=== PATIENT | male | born 1960 | race Caucasian/White ===

== ENCOUNTER 2018-02-14 13:29 | Emergency (ER) | payer SELFPAY ==
[2018-02-14 13:42] VITALS: BP 149/95
[2018-02-14] MEDS ORDERED: LIDOCAINE 2% VISCOUS SOLN 20 ML UDCUP PO ONE (14:22)
[2018-02-14] MEDS ORDERED: MAG HYDROX/AL HYDROX/SIMETH SUSP 30 ML UDCUP PO ONE (14:22)
[2018-02-14] MEDS ORDERED: METOCLOPRAMIDE HCL ORAL SOLN 10 MG/10 ML UDCUP PO ONE (14:22)
--- NOTE | 2018-02-14 14:24 | ER Document Report ---
ED Medical Screen (RME) - General Chief Complaint: Abdominal Pain Stated Complaint: ABDOMINAL PAIN Time Seen by Provider: 02/14/18 14:07 Mode of Arrival: Ambulatory Information source: Patient, Relative TRAVEL OUTSIDE OF THE [place] IN LAST 30 DAYS: No - HPI Patient complains to provider of: Abdominal pain Onset: Last week - This is a 57-year-old male alcoholic as well as daily cigarette smoker who presents for evaluation of recurrent episodes of bizarre feeling in his stomach upon drinking water as well as insomnia which is developed after finding out that his son last week. He notes that he has had difficulty sleeping, he said difficulty and drinking and eating as he usually does because he has a weird sensation in his stomach when he drinks water but it is very cold and shoots through him. He has had episodes of gastritis in the past and reflux which he says this is similar to. Nothing seemed to make it much better, nothing seems to make it worse except for drinking cold water. - Related Data Allergies/Adverse Reactions: No Known Allergies Allergy (Unverified 02/14/18 13:30) Past Medical History - General Information source: Patient, Relative - Social History Cigarette use (# per day): Yes Frequency of alcohol use: Heavy Drug Abuse: None Renal/ Medical History: Denies: Hx Peritoneal Dialysis Past Surgical History: Reports: Hx Inguinal Hernia Review of Systems - Review of Systems -: Yes All other systems reviewed and negative Physical Exam - Vital signs Vitals: Temp Pulse Resp BP Pulse Ox 98.1 F 105 H 16 149/95 H 98 02/14/18 13:41 02/14/18 13:41 02/14/18 13:41 02/14/18 13:41 02/14/18 13:41 - General General appearance: Appears well In distress: Mild - HEENT Head: Normocephalic Eyes: Normal Conjunctiva: Normal Ears: Normal Pharynx: Normal Neck: Normal - Respiratory Respiratory status: No respiratory distress Chest status: Nontender Breath sounds: Normal Chest palpation: Normal - Cardiovascular Rhythm: Regular Heart sounds: Normal auscultation Murmur: No - Abdominal Inspection: Normal Bowel sounds: Normal Tenderness: Tender - Tenderness in the left upper quadrant, no appreciable rebound no appreciable guarding - Back Back: Normal - Extremities General upper extremity: Normal inspection General lower extremity: Normal inspection - Neurological Neuro grossly intact: Yes Cognition: Normal Orientation: AAOx4 - Psychological Associated symptoms: Normal affect Course - Re-evaluation Re-evalutation: This 57-year-old male presents for evaluation of abdominal pain which developed in the setting of him having not been able to eat or drink over the last 6-7 days, he has been drinking small volumes of water according to his sister who presents with him ever since finding out that his son . She notes that this is unlike him he still been functioning working daily he is a daily alcohol drinker as well as daily smoker. On examination the patient's abdominal exam is benign, there is no appreciable rebound no guarding is slightly tender in the left upper quadrant over the stomach. He is a negative Verma sign, no tenderness in the right lower quadrant. Given the patient's well appearance and reassuring abdominal examination will plan to administer a GI cocktail as I think that he likely has an underlying gastritis as a result of cigarette use insomnia and tobacco use as well as alcohol use. He is in agreement with this plan at this time, CBC and CMP show hemoconcentration. Patient likely is fluid depleted though he is tolerating p.o. very well at this time will encourage him to continue to drink water. 02/14/18 16:21 On reassessment this 57-year-old man is tolerating p.o., he is feeling better, is going to try to tolerate some solid foods his abdominal examination remains benign. Since his exam remains benign and he is well-appearing in tolerate p.o. believe is likely safe for discharge at this time will plan for this patient undergo discharge with return precautions encouraged follow-up with his primary physician did business and financial counsel about the importance of smoking cessation as well as alcohol cessation if he is to improve his underlying gastritis. 02/14/18 19:56 - Vital Signs Vital signs: Temp Pulse Resp BP Pulse Ox 98.1 F 105 H 16 149/95 H 98 02/14/18 13:41 02/14/18 13:41 02/14/18 13:41 02/14/18 13:41 02/14/18 13:41 - Laboratory Result Diagrams: 02/14/18 14:50 02/14/18 14:50 Laboratory results interpreted by me: 02/14/18 02/14/18 14:50 14:50 WBC 16.5 H Hgb 19.2 H Hct 55.9 H MCV 104 H MCH 35.6 H RDW 15.3 H Seg Neutrophils % 86.5 H Lymphocytes % 5.7 L Absolute Neutrophils 14.3 H Sodium 136.3 L Chloride 97 L Carbon Dioxide 21 L Direct Bilirubin 0.5 H Total Protein 8.7 H Doctor's Discharge - Discharge Clinical Impression: Nausea, Grief reaction, Alcohol use, Tobacco abuse Gastritis Qualifiers: Gastritis type: other gastritis Chronicity: chronic Gastritis bleeding: without bleeding Qualified Code(s): K29.50 - Unspecified chronic gastritis without bleeding Condition: Good Disposition: HOME, SELF-CARE Instructions: Abdominal Pain ([facility]), Gastritis ([facility]) Prescriptions: Diphenhydramine HCl 25 mg PO QHS PRN #25 capsule PRN Reason: Sleep Or Insomnia Omeprazole Magnesium [Prilosec Otc] 40 mg PO DAILY #120 tablet. Sucralfate [Carafate 1 gm Tablet] 1 gm PO QID #140 tablet Forms: Smoking Cessation Education, Elevated Blood Pressure
[2018-02-14 15:04] LABS: ABSOLUTE BASOPHILS # (AUTO) 0.1 10^3/uL (0.0-0.2); ABSOLUTE EOSINOPHILS # (AUTO) 0.1 10^3/uL (0.0-0.6); ABSOLUTE LYMPHOCYTES (AUTO) 0.9 10^3/uL (0.5-4.7); ABSOLUTE MONOCYTES (AUTO) 1.2 10^3/uL (0.1-1.4); ABSOLUTE NEUT (AUTO) 14.3 10^3/uL (1.7-8.2); BASOPHILS % (AUTO) 0.3 % (0-2); EOSINOPHILS % (AUTO) 0.4 % (0-6); HEMOGLOBIN 19.2 g/dL (13.5-17.0); LYMPHOCYTES % (AUTO) 5.7 % (13-45); MEAN CORPUSCULAR HEMOGLOBIN 35.6 pg (27.0-33.4); MEAN CORPUSCULAR HGB CONC 34.4 g/dL (32.0-36.0); MEAN CORPUSCULAR VOLUME 104 fl (80-97); MONOCYTES % (AUTO) 7.1 % (3-13); PLATELET COUNT 317 10^3/uL (150-450); RED CELL DISTRIBUTION WIDTH 15.3 % (11.5-14.0); SEGMENTED NEUTROPHILS % (AUTO) 86.5 % (42-78); TOTAL CELLS COUNTED % (AUTO) 100 %; WHITE BLOOD COUNT 16.5 10^3/uL (4.0-10.5)
[2018-02-14 15:05] LABS: HEMATOCRIT 55.9 % (37.9-51.0)
[2018-02-14 15:34] LABS: ALANINE AMINOTRANSFERASE 31 U/L (21-72); ALBUMIN 4.4 g/dL (3.5-5.0); ALKALINE PHOSPHATASE 123 U/L (38-126); ANION GAP 18 (5-19); ASPARTATE AMINO TRANSFERASE 39 U/L (17-59); BILIRUBIN,DIRECT 0.5 mg/dL (0.0-0.4); BILIRUBIN,TOTAL 0.8 mg/dL (0.2-1.3); BLOOD UREA NITROGEN 10 mg/dL (7-20); CARBON DIOXIDE 21 mmol/L (22-30); CHLORIDE 97 mmol/L (98-107); GLUCOSE 97 mg/dL (75-110); POTASSIUM 4.3 mmol/L (3.6-5.0); SODIUM 136.3 mmol/L (137-145); TOTAL PROTEIN 8.7 g/dL (6.3-8.2)
== END 2018-02-14 18:30 | disposition home or self-care (01) ==
LOC: ER 13:29
DX: K29.50 Unspecified chronic gastritis without bleeding (principal); G47.01 Insomnia due to medical condition; F43.29 Adjustment disorder with other symptoms; G47.00 Insomnia, unspecified; R11.0 Nausea; R10.9 Unspecified abdominal pain; R10.812 Left upper quadrant abdominal tenderness; F10.20 Alcohol dependence, uncomplicated; F17.210 Nicotine dependence, cigarettes, uncomplicated
CPT/HCPCS: 99284; 36415; 83690; 85025; 80053; J3490

== ENCOUNTER 2018-07-07 10:04 | Inpatient (IN) | payer SELFPAY ==
--- NOTE | 2018-07-07 10:31 | ER Document Report ---
ED General - General Stated Complaint: WEAKNESS Time Seen by Provider: 07/07/18 10:08 Notes: Patient was brought in by EMS with a complaint of chest "pounding" and "thro bbing" which he says comes and goes for the past week. Does not mention the words chest pain. In addition, patient says that he has developed a "major headache" since yesterday. He says he has difficulty standing and with his balance and feels like he is going to fall, although he has not done so. Says he had an episode similar to this 6 or 7 years ago and was worked up and does not recall what the doctors told and was wrong. Never been told he had a heart attack. Told he had a heart murmur. Patient is a heavy alcohol drinker, but says he is not had any alcohol since about 2 PM yesterday. Also says he has not eaten anything for 2 days. Says he does not feel right for several days. Patient is homeless. Says he slept outside last night for the first time. Temperatures went down into the 30s. Says he does not feel like he can get warm. TRAVEL OUTSIDE OF THE [place] IN LAST 30 DAYS: No - Related Data Allergies/Adverse Reactions: No Known Allergies Allergy (Unverified 02/14/18 13:30) Past Medical History - Social History Smoking Status: Current Every Day Smoker Frequency of alcohol use: Heavy Family History: None, Reviewed & Not Pertinent - Past Medical History Cardiac Medical History: Denies: Hx Coronary Artery Disease, Hx Heart Attack, Hx Hypertension Pulmonary Medical History: Denies: Hx Asthma, Hx COPD Neurological Medical History: Denies: Hx Cerebrovascular Accident Endocrine Medical History: Denies: Hx Diabetes Mellitus Type 1, Hx Diabetes Mellitus Type 2 Past Surgical History: Reports: Hx Inguinal Hernia Review of Systems - Review of Systems Notes: REVIEW OF SYSTEMS: CONSTITUTIONAL : Denies fever. EENT: Denies eye, ear, nose or mouth or throat pain or other symptoms. CARDIOVASCULAR: Denies chest pain. See HPI. RESPIRATORY: Says he is having difficulty breathing, but denies cough, chest congestion. GASTROINTESTINAL: Denies abdominal pain or nausea, vomiting, or diarrhea. GENITOURINARY: Denies difficulty or painful urinating, urinary frequency, blood in urine. MUSCULOSKELETAL: Denies back or neck pain. Denies joint pain or swelling. SKIN: Denies rash or skin lesions. NEUROLOGICAL: Denies LOC or altered mental status. See HPI regarding headache. Denies sensory loss, but says he has problems standing and feels like he is going to fall. No specific neurologic deficits. ALL OTHER SYSTEMS REVIEWED AND NEGATIVE. Physical Exam - Vital signs Vitals: Temp 98.0 F 07/07/18 10:16 Interpretation: Normal - Notes Notes: PHYSICAL EXAMINATION: GENERAL: Well-appearing, in no acute distress. Anxious. Shivering and shaking. Temp 97.9. HEAD: Atraumatic, normocephalic. EYES: Pupils equal round and reactive to light, extraocular movements intact. ENT: oropharynx clear without exudates. Moist mucous membranes. NECK: Normal range of motion, supple. LUNGS: Breath sounds clear and equal bilaterally. HEART: Regular rate and rhythm without murmurs. ABDOMEN: Soft, nontender. No guarding or rebound. No masses. BACK: No tenderness throughout entire back. EXTREMITIES: Normal range of motion without pain. Negative Homans bilaterally. NEUROLOGICAL: Normal speech, normal gait. Normal sensory, motor, and reflex exams. Awake, alert, and oriented x3. Cranial nerves normal. PSYCH: Normal mood, normal affect. SKIN: Warm, dry, no rashes. Course - Re-evaluation Re-evalutation: 07/07/18 13:53 Basically, almost all of the patient's lab results of significance are normal. CT scan shows aging brain but no acute processes and no strokes. Chest x-ray shows no abnormalities. Patient says he cannot walk. Cannot stand. We were able to stand him at the bedside, but is unsteady on his feet. He can walk, but does not look as if it is reliable. Heart rate went up to 106 when we did this maneuver at bedside. Am going to get a CTA of his chest and repeat his troponin. 07/07/18 16:28 Rechecked patient's ability to stand and he is still very uncertain on his feet. He can stand and walk but he seems to have problems with his balance. Additionally, when he gets up out of the bed, his heart rate goes up as it has done earlier into the 1 teens to 120. Drug screen was negative and alcohol was negative. I do not know if this patient is experiencing alcohol withdrawal since his last alcohol was yesterday afternoon. Or, whether he may be having some neurologic event that is not picked up by his CT scan. I have added on a thyroid study to the labs have already obtained. I have spoken to the hospitalist about observing the patient overnight and further studies to determine that there is a definite pathologic cause or not for his symptoms. - Vital Signs Vital signs: Temp Pulse Resp BP Pulse Ox 98.0 F 85 16 127/88 H 97 07/07/18 10:16 07/07/18 10:20 07/07/18 16:04 07/07/18 16:04 07/07/18 16:04 - Laboratory Result Diagrams: 07/07/18 10:10 07/07/18 10:10 Laboratory results interpreted by nc: 07/07/18 07/07/18 07/07/18 10:10 10:10 12:45 RBC 4.19 L MCV 99 H MCH 34.5 H Seg Neutrophils % 84.7 H Lymphocytes % 7.4 L Sodium 133.7 L Chloride 97 L Carbon Dioxide 20 L Glucose 220 H Calcium 10.4 H AST 122 H ALT 82 H Total Protein 8.5 H Albumin 5.1 H Urine Protein 100 H Urine Glucose (UA) >=500 H Urine Urobilinogen 4.0 H - Diagnostic Test Radiology reviewed: Image reviewed, Reports reviewed - CT head negative. CTA of the chest negative. - EKG Interpretation by Tn EKG shows normal: Sinus rhythm Rate: Normal Rhythm: NSR Additional EKG results interpreted by nc: 07/07/18 11:17 EKG is normal. Discharge - Discharge Clinical Impression: Chest pain, Weakness, Headache, Possible alcohol withdrawal Condition: Stable Disposition: ADMITTED OBSERVATION Admitting Provider: Hospitalist Unit Admitted: Telemetry
[2018-07-07 10:41] LABS: ABSOLUTE BASOPHILS # (AUTO) 0.1 10^3/uL (0.0-0.2); ABSOLUTE LYMPHOCYTES (AUTO) 0.6 10^3/uL (0.5-4.7); ABSOLUTE MONOCYTES (AUTO) 0.5 10^3/uL (0.1-1.4); ABSOLUTE NEUT (AUTO) 6.5 10^3/uL (1.7-8.2); BASOPHILS % (AUTO) 0.8 % (0-2); EOSINOPHILS % (AUTO) 0.1 % (0-6); HEMATOCRIT 41.4 % (37.9-51.0); HEMOGLOBIN 14.5 g/dL (13.5-17.0); LYMPHOCYTES % (AUTO) 7.4 % (13-45); MEAN CORPUSCULAR HEMOGLOBIN 34.5 pg (27.0-33.4); MEAN CORPUSCULAR HGB CONC 34.9 g/dL (32.0-36.0); MEAN CORPUSCULAR VOLUME 99 fl (80-97); PLATELET COUNT 164 10^3/uL (150-450); RED BLOOD COUNT 4.19 10^6/uL (4.35-5.55); RED CELL DISTRIBUTION WIDTH 12.6 % (11.5-14.0); SEGMENTED NEUTROPHILS % (AUTO) 84.7 % (42-78); TOTAL CELLS COUNTED % (AUTO) 100 %; WHITE BLOOD COUNT 7.6 10^3/uL (4.0-10.5)
[2018-07-07 10:55] LABS: ALANINE AMINOTRANSFERASE 82 U/L (21-72); ALBUMIN 5.1 g/dL (3.5-5.0); ALKALINE PHOSPHATASE 126 U/L (38-126); ANION GAP 17 (5-19); ASPARTATE AMINO TRANSFERASE 122 U/L (17-59); BILIRUBIN,DIRECT 0.3 mg/dL (0.0-0.4); BILIRUBIN,TOTAL 1.2 mg/dL (0.2-1.3); BLOOD UREA NITROGEN 8 mg/dL (7-20); CALCIUM 10.4 mg/dL (8.4-10.2); CARBON DIOXIDE 20 mmol/L (22-30); CHLORIDE 97 mmol/L (98-107); CREATINE KINASE 72 U/L (55-170); GLUCOSE 220 mg/dL (75-110); POTASSIUM 4.2 mmol/L (3.6-5.0); SODIUM 133.7 mmol/L (137-145); TOTAL PROTEIN 8.5 g/dL (6.3-8.2)
[2018-07-07 11:00] LABS: ALCOHOL < 10 mg/dL (NONE DETECTED)
[2018-07-07 11:05] LABS: CREATINE KINASE MB 0.75 ng/mL (<4.55)
[2018-07-07 11:06] LABS: TROPONIN I < 0.012 ng/mL
--- NOTE | 2018-07-07 11:27 | RADIOLOGY REPORT (SQ) ---
EXAM DESCRIPTION: CT HEAD WITHOUT COMPLETED DATE/TIME: 07/07/2018 11:16 am REASON FOR STUDY: Headache and difficulty standing and walking COMPARISON: None. TECHNIQUE: Axial images acquired through the brain without intravenous contrast. Images reviewed wi th bone, brain and subdural windows. Additional sagittal and coronal reconstructions were generated. Images stored on PACS. All CT scanners at this facility use dose modulation, iterative reconstruction, and/or weight based d osing when appropriate to reduce radiation dose to as low as reasonably achievable (ALARA). [facility]: Dose Right [facility]: CareDose [facility]: Dose Right [facility]: Teradose 4D [facility]: Smart [employer] Limited RADIATION DOSE: CT Rad equipment meets quality standard of care and radiation dose reduction techniq ues were employed. CTDIvol: 48.8 mGy. DLP: 1078 mGy-cm.mGy. LIMITATIONS: None. FINDINGS: VENTRICLES: Prominent. CEREBRUM: No masses. No hemorrhage. No midline shift. Old left frontal infarct. Areas of low dens ity in the white matter most likely due to chronic micro-vascular ischemic change. No evidence for a cute infarction. CEREBELLUM: No masses. No hemorrhage. No alteration of density. No evidence for acute infarction. EXTRAAXIAL SPACES: Age-related involutional change. No fluid collections. No masses. ORBITS AND GLOBE: No intra- or extraconal masses. Normal contour of globe without masses. CALVARIUM: No fracture. PARANASAL SINUSES: No fluid or mucosal thickening. SOFT TISSUES: No mass or hematoma. OTHER: No other significant finding. IMPRESSION: Chronic ischemic changes. EVIDENCE OF ACUTE STROKE: NO. TECHNICAL DOCUMENTATION: JOB ID: [id number] Quality ID # [id number]: Final reports with documentation of one or more dose reduction techniques (e.g., Au tomated exposure control, adjustment of the mA and/or kV according to patient size, use of iterative reconstruction technique) 2010 [employer]- All Rights Reserved Reading location - IP/workstation name: [email or web address]
--- NOTE | 2018-07-07 13:05 | RADIOLOGY REPORT (SQ) ---
EXAM DESCRIPTION: CHEST 2 VIEWS COMPLETED DATE/TIME: 07/07/2018 12:36 pm REASON FOR STUDY: Difficulty breathing, chest throbbing COMPARISON: None. EXAM PARAMETERS: NUMBER OF VIEWS: two views TECHNIQUE: Digital Frontal and Lateral radiographic views of the chest acquired. RADIATION DOSE: NA LIMITATIONS: none FINDINGS: LUNGS AND PLEURA: No opacities, masses or pneumothorax. No pleural effusion. MEDIASTINUM AND HILAR STRUCTURES: No masses or contour abnormalities. HEART AND VASCULAR STRUCTURES: Heart normal size. No evidence for failure. BONES: No acute findings. HARDWARE: None in the chest. OTHER: No other significant finding. IMPRESSION: NO ACUTE RADIOGRAPHIC FINDING IN THE CHEST. TECHNICAL DOCUMENTATION: JOB ID: [id number] [employer]- All Rights Reserved Reading location - IP/workstation name: [email or web address]
[2018-07-07 13:11] LABS: APPEARANCE,URINE SLIGHTLY-CLOUDY; BILIRUBIN,URINE NEGATIVE (NEGATIVE); COLOR,URINE AMBER; GLUCOSE, URINE >=500 mg/dL (NEGATIVE); KETONES,URINE NEGATIVE (NEGATIVE); LEUKOCYTE ESTERASE,URINE NEGATIVE (NEGATIVE); NITRITE,URINE NEGATIVE (NEGATIVE); PROTEIN,URINE 100 mg/dL (NEGATIVE); URINE SPECIFIC GRAVITY 1.014
[2018-07-07 13:24] LABS: URINE AMPHETAMINES SCREEN NEGATIVE; URINE BARBITURATES SCREEN NEGATIVE; URINE BENZODIAZEPINES SCREEN NEGATIVE; URINE COCAINE SCREEN NEGATIVE; URINE MARIJUANA (THC) SCREEN UNCONFIRMED POSITIVE; URINE METHADONE SCREEN NEGATIVE; URINE PHENCYCLIDINE SCREEN NEGATIVE
--- NOTE | 2018-07-07 14:51 | RADIOLOGY REPORT (SQ) ---
EXAM DESCRIPTION: CTA CHEST COMPLETED DATE/TIME: 07/07/2018 2:33 pm REASON FOR STUDY: Short of breath and tachycardia COMPARISON: None. TECHNIQUE: CT scan of the chest performed using helical scanning technique with dynamic intravenous contrast injection. Images reviewed with lung, soft tissue and bone windows. Reconstructed coronal and sagittal MPR images reviewed. Additional 3 dimensional post-processing performed to develop Maximal Intensity Projection images (AR P). All images stored on PACS. All CT scanners at this facility use dose modulation, iterative reconstruction, and/or weight based d osing when appropriate to reduce radiation dose to as low as reasonably achievable (ALARA). [facility]: Dose Right [facility]: CareDose [facility]: Dose Right [facility]: Teradose 4D [facility]: [employer] CONTRAST TYPE AND DOSE: contrast/concentration: Isovue 350.00 mg/ml; Total Contrast Delivered: 62.0 ml; Total Saline Delivered: 101.8 ml Contrast bolus optimized for the pulmonary arteries. Not diagnostic for the aorta. RENAL FUNCTION: BUN 8 creatinine 0.74 RADIATION DOSE: CT Rad equipment meets quality standard of care and radiation dose reduction techniq ues were employed. CTDIvol: 9.4 - 9.9 mGy. DLP: 402 mGy-cm. . LIMITATIONS: None. FINDINGS: LUNGS AND PLEURA: No masses, infiltrates, or pneumothorax. No pleural effusions or pleura l calcifications. AORTA AND GREAT VESSELS: No aneurysm. Contrast bolus not optimized for the aorta. HEART: No pericardial effusion. No significant coronary artery calcifications. PULMONARY ARTERIES: No emboli visualized in the main pulmonary arteries or the segmental branches. HILAR AND MEDIASTINAL STRUCTURES: No identified masses or abnormal nodes. HARDWARE: None in the chest. UPPER ABDOMEN: No significant findings. Limited exam. THYROID AND OTHER SOFT TISSUES: No masses. No adenopathy. BONES: No acute or significant finding. 3D MIPS: Confirm above findings. OTHER: No other significant finding. IMPRESSION: NORMAL CTA OF THE CHEST. NO PULMONARY EMBOLI. COMMENT: Quality ID # [id number]: Final reports with documentation of one or more dose reduction techniques (e.g., Automated exposure control, adjustment of the mA and/or kV according to patient size, use of iterative reconstruction technique) TECHNICAL DOCUMENTATION: JOB ID: [id number] [employer]- All Rights Reserved Reading location - IP/workstation name: [email or web address]
[2018-07-07] MEDS ORDERED: NORMAL SALINE 1000 ML 1,000 ML IV ONE (16:21)
[2018-07-07 17:15] LABS: FREE T4 (FREE THYROXINE) 0.94 ng/dL (0.78-2.19)
[2018-07-07] MEDS ORDERED: ONDANSETRON 4 MG TAB.RAPDIS PO PRN (17:16)
[2018-07-07] MEDS ORDERED: IPRATROPIUM/ALBUTEROL 0.5-2.5 MG/3 ML AMPUL NEB PRN (17:16)
[2018-07-07 17:28] LABS: THYROID STIMULATING HORMONE 3.4 uIU/mL (0.47-4.68)
--- NOTE | 2018-07-07 17:52 | PDOC H&P ---
History of Present Illness Admission Date/PCP: 07/07/18 16:43 Patient complains of: Dizziness, chest pounding, unsteady gait and inability to ambulate since today. History of Present Illness: YURY SCHULTE is a 57 year old male who presents to the emergency room with the above complaints. Patient said the symptoms actually started today. He also complained of an associated headache but no blurred vision. He said he went to the [facility] today and was there he started suffering from the symptoms. There is no nausea vomiting or diarrhea or abdominal pain. She then said he had been having some palpitations off and on but he got concerned as it became worse today. Patient also has tremors and shakes. He says he drinks about 2 cans of beer daily sometimes more on the weekend. His last drink was about 4 days ago as he ran out of money to buy alcohol. Patient did try to minimize his drinking habits when I questioned him and he is pretty sure that his symptoms are not alcohol related. He said he stopped drinking before without any issues. Kenyatta ent is also noted to have a positive toxicology screen for marijuana. He denies any other significant medical history Past Medical History Cardiac Medical History: Denies: Coronary Artery Disease, Myocardial Infarction, Hypertension Pulmonary Medical History: Denies: Asthma, Chronic Obstructive Pulmonary Disease (COPD) Endocrine Medical History: Denies: Diabetes Mellitus Type 1, Diabetes Mellitus Type 2 Past Surgical History Past Surgical History: Reports: None Social History Information Source: Patient Smoking Status: Current Every Day Smoker Frequency of Alcohol Use: Heavy - See H and P Last Alcohol Use: 07/02/18 Hx Recreational Drug Use: Yes Drugs: Marijuana Hx Prescription Drug Abuse: No - Advance Directive Resuscitation Status: Full Code Family History Family History: None, Reviewed & Not Pertinent Parental Family History Reviewed: Yes - Both parents from cancer, mother uterine, father liver Children Family History Reviewed: Unknown Sibling(s) Family History Reviewed.: Yes - cancer Medication/Allergy Allergies/Adverse Reactions: No Known Allergies Allergy (Unverified 02/14/18 13:30) Review of Systems All systems: reviewed and no additional remarkable complaints except as stated Neurological: PRESENT: as per HPI, abnormal movements, dizziness, restless legs, tremor(s), weakness Physical Exam Vital Signs: Temp Pulse Resp BP Pulse Ox 98.0 F 85 22 H 127/88 H 95 07/07/18 10:16 07/07/18 10:20 07/07/18 17:00 07/07/18 16:04 07/07/18 17:00 Intake & Output 07/06/18 07/07/18 07/08/18 06:59 06:59 06:59 Weight 62.7 kg General appearance: PRESENT: no acute distress, cooperative, other - tremor Head exam: PRESENT: atraumatic Ear exam: PRESENT: normal external ear exam Neck exam: PRESENT: full ROM. ABSENT: carotid bruit, JVD, meningismus, thyromegaly Respiratory exam: PRESENT: unlabored. ABSENT: accessory muscle use, rales, retraction Cardiovascular exam: PRESENT: +S1, +S2. ABSENT: systolic murmur Pulses: PRESENT: normal dorsalis pedis pul GI/Abdominal exam: PRESENT: normal bowel sounds, soft. ABSENT: distended, guarding, mass, organolmegaly, rebound, tenderness Rectal exam: PRESENT: deferred Extremities exam: PRESENT: full ROM. ABSENT: calf tenderness, clubbing, pedal edema Musculoskeletal exam: PRESENT: full ROM Neurological exam: PRESENT: alert, awake, oriented to person, oriented to place, reflexes normal - hyper reflexia, other Psychiatric exam: PRESENT: agitated, anxious, other Focused psych exam: PRESENT: restlessness Results Laboratory Results: 07/07/18 10:10 07/07/18 10:10 07/07/18 07/07/18 07/07/18 10:10 10:10 10:10 WBC 7.6 RBC 4.19 L Hgb 14.5 Hct 41.4 MCV 99 H MCH 34.5 H MCHC 34.9 RDW 12.6 Plt Count 164 Seg Neutrophils % 84.7 H Lymphocytes % 7.4 L Monocytes % 7.0 Eosinophils % 0.1 Basophils % 0.8 Absolute Neutrophils 6.5 Absolute Lymphocytes 0.6 Absolute Monocytes 0.5 Absolute Eosinophils 0.0 Absolute Basophils 0.1 Sodium 133.7 L Potassium 4.2 Chloride 97 L Carbon Dioxide 20 L Anion Gap 17 BUN 8 Creatinine 0.74 Est GFR ( Amer) > 60 Est GFR (Non-Af Amer) > 60 Glucose 220 H Calcium 10.4 H Total Bilirubin 1.2 AST 122 H ALT 82 H Alkaline Phosphatase 126 Total Protein 8.5 H Albumin 5.1 H TSH 3.40 Free T4 0.94 Urine Color Urine Appearance Urine pH Ur Specific [place] Urine Protein Urine Glucose (UA) Urine Ketones Urine Blood Urine Nitrite Ur Leukocyte Esterase Urine WBC (Auto) Urine RBC (Auto) 07/07/18 12:45 WBC RBC Hgb Hct MCV MCH MCHC RDW Plt Count Seg Neutrophils % Lymphocytes % Monocytes % Eosinophils % Basophils % Absolute Neutrophils Absolute Lymphocytes Absolute Monocytes Absolute Eosinophils Absolute Basophils Sodium Potassium Chloride Carbon Dioxide Anion Gap BUN Creatinine Est GFR ( Amer) Est GFR (Non-Af Amer) Glucose Calcium Total Bilirubin AST ALT Alkaline Phosphatase Total Protein Albumin TSH Free T4 Urine Color KIM Urine Appearance SLIGHTLY-CLOUDY Urine pH 6.0 Ur Specific [place] 1.014 Urine Protein 100 H Urine Glucose (UA) >=500 H Urine Ketones NEGATIVE Urine Blood NEGATIVE Urine Nitrite NEGATIVE Ur Leukocyte Esterase NEGATIVE Urine WBC (Auto) 1 Urine RBC (Auto) 1 07/07/18 07/07/18 07/07/18 10:10 10:10 14:40 Creatine Kinase 72 CK-MB (CK-2) 0.75 Troponin I < 0.012 0.013 Impressions: Chest X-Ray 07/07/18 10:26 IMPRESSION: NO ACUTE RADIOGRAPHIC FINDING IN THE CHEST. Head CT 07/07/18 10:27 IMPRESSION: Chronic ischemic changes. EVIDENCE OF ACUTE STROKE: NO. Chest/Abdomen CTA 07/07/18 14:06 IMPRESSION: NORMAL CTA OF THE CHEST. NO PULMONARY EMBOLI. Assessment & Plan - Diagnosis (1) Substance abuse Is this a current diagnosis for this admission?: Yes Plan: Patient will need counseling (2) EtOH dependence Qualifiers: Substance use status: in withdrawal Complication of substance-induced condition: with delirium Qualified Code(s): F10.231 - Alcohol dependence with withdrawal delirium Is this a current diagnosis for this admission?: Yes Plan: Patient symptoms are likely due to alcohol abuse although he seems to be minimizing them somewhat. We will keep a close eye on him. (3) Delirium tremens Is this a current diagnosis for this admission?: Yes Plan: Will monitor closely Place on CIWA protocol (4) Electrolyte imbalance Is this a current diagnosis for this admission?: Yes Plan: Secondary to ETOH abuse - Time Time Spent: 50 to 70 Minutes Smoking Cessation Education: 3 to 10 minutes Medications reviewed and adjusted accordingly: Yes Anticipated discharge: Home Within: within 72 hours - Inpatient Certification Based on my medical assessment, after consideration of the patient's comorbidities, presenting symptoms, or acuity I expect that the services needed warrant INPATIENT care.: Yes Medical Necessity: Need Close Monitoring Due to Risk of Patient Decompensation, Risk of Complication if Not Cared For in Hospital
[2018-07-07] MEDS: LORAZEPAM INJ 2 MG/1 ML VIAL IV PRN (17:55)
[2018-07-07] MEDS ORDERED: BANANA BAG (EDIT INGREDIENTS/RATE) IV SCH ×5 (18:00)
[2018-07-07] MEDS: NORMAL SALINE 1000 ML 1,000 ML IV PRN ×2 (19:34→22:32)
[2018-07-07] MEDS ORDERED: BANANA BAG IV SCH ×5 (22:00)
[2018-07-07] MEDS ORDERED: NORMAL SALINE 1000 ML 1,000 ML IV PRN ×2 (22:16→22:30)
[2018-07-07] MEDS ORDERED: MVI, ADULT NO.1 WITH VIT K INJ 10 ML VIAL IV PRN (22:17)
[2018-07-07] MEDS ORDERED: POTASSIUM CHLORIDE 20 MEQ/50 ML RTU IV PRN (22:18)
[2018-07-07] MEDS ORDERED: THIAMINE HCL INJ 200 MG/2 ML VIAL IV PRN (22:18)
[2018-07-07] MEDS ORDERED: MAGNESIUM SULFATE/D5W 1 GM/100 ML RTUPB IV PRN (22:19)
[2018-07-07] MEDS: FAMOTIDINE 20 MG TABLET PO SCH (22:33)
--- NOTE | 2018-07-08 00:10 | EKG REPORT ---
SEVERITY:- OTHERWISE NORMAL ECG - SINUS RHYTHM BORDERLINE LEFT AXIS DEVIATION : Confirmed by: Nico Hinds 08-Jul-2018 00:10:17
[2018-07-08 06:45] LABS: HEMATOCRIT 35.4 % (37.9-51.0); HEMOGLOBIN 12.5 g/dL (13.5-17.0); MEAN CORPUSCULAR HEMOGLOBIN 34.9 pg (27.0-33.4); MEAN CORPUSCULAR HGB CONC 35.1 g/dL (32.0-36.0); MEAN CORPUSCULAR VOLUME 99 fl (80-97); PLATELET COUNT 128 10^3/uL (150-450); RED BLOOD COUNT 3.56 10^6/uL (4.35-5.55); RED CELL DISTRIBUTION WIDTH 12.2 % (11.5-14.0); WHITE BLOOD COUNT 5.2 10^3/uL (4.0-10.5)
[2018-07-08 07:10] LABS: ALANINE AMINOTRANSFERASE 57 U/L (21-72); ALKALINE PHOSPHATASE 83 U/L (38-126); ANION GAP 8 (5-19); ASPARTATE AMINO TRANSFERASE 68 U/L (17-59); BILIRUBIN,DIRECT 0.3 mg/dL (0.0-0.4); BILIRUBIN,TOTAL 1.5 mg/dL (0.2-1.3); BLOOD UREA NITROGEN 7 mg/dL (7-20); CALCIUM 9.3 mg/dL (8.4-10.2); CARBON DIOXIDE 24 mmol/L (22-30); CHLORIDE 103 mmol/L (98-107); GLUCOSE 84 mg/dL (75-110); PHOSPHORUS 3.3 mg/dL (2.5-4.5); POTASSIUM 3.9 mmol/L (3.6-5.0); SODIUM 135.2 mmol/L (137-145); TOTAL PROTEIN 6.9 g/dL (6.3-8.2)
[2018-07-08] MEDS: NORMAL SALINE 1000 ML 1,000 ML IV PRN ×2 (07:11→22:20)
--- NOTE | 2018-07-08 08:35 | RADIOLOGY REPORT (SQ) ---
EXAM DESCRIPTION: MRI HEAD COMBO COMPLETED DATE/TIME: 07/07/2018 8:53 pm REASON FOR STUDY: Dizziness, tremors COMPARISON: CT brain, 07/07/2018 TECHNIQUE: Multiplanar imaging includes noncontrasted T1, T2, FLAIR, diffusion with ADC map and post gadolinium contrast T1 sequences. Images stored on PACS. CONTRAST TYPE AND DOSE: 10 mL Dotarem. RENAL FUNCTION: GFR > 60. LIMITATIONS: None. FINDINGS: ANATOMY: No anomalies. Normal vascular flow voids. Pituitary fossa normal. CSF SPACES: Normal in size and contour. No hemorrhage. CEREBRUM: Sulci and gyri normal in size and contour. Encephalomalacia of the left frontal pole and l eft temporal pole. No evidence of hemorrhage, mass, or extraaxial fluid collection. No abnormal enhan cement post contrast. POSTERIOR FOSSA: No signal alteration. No hemorrhage. No edema, masses, or mass effect. Internal kun tory canals, cerebellopontine angles, mastoids normal. No enhancing lesions. No abnormal enhancement post contrast. DIFFUSION IMAGING: Negative for acute or subacute infarction. ORBITS: No masses. Globes normal. PARANASAL SINUSES: No fluid levels. Mucosa normal. OTHER: No other significant finding. IMPRESSION: Redemonstrated encephalomalacia of the left frontal pole and left temporal pole. No acu te MR abnormality of the brain. No abnormal intracranial contrast enhancement. EVIDENCE OF ACUTE STROKE: NO. TECHNICAL DOCUMENTATION: JOB ID: [id number]- All Rights Reserved Reading location - IP/workstation name: [email or web address]
[2018-07-08] MEDS: DOCUSATE SODIUM 100 MG CAPSULE PO SCH (10:01)
[2018-07-08] MEDS: FAMOTIDINE 20 MG TABLET PO SCH ×2 (10:16→22:19)
[2018-07-08] MEDS: ENOXAPARIN SODIUM INJ 40 MG/0.4 ML DISP.SYRIN SUBCUT SCH (10:17)
[2018-07-08] MEDS: LORAZEPAM INJ 2 MG/1 ML VIAL IV PRN ×5 (10:41→22:19)
[2018-07-08] MEDS ORDERED: LORAZEPAM INJ 2 MG/1 ML VIAL ONE (13:18)
--- NOTE | 2018-07-08 13:48 | PDOC PROGRESS REPORT ---
Subjective Progress Note for:: 07/08/18 Subjective:: Patient admitted with what appeared to be alcohol withdrawal symptoms although he denies that he was "" drinking that much. He also states that he has not used any marijuana recently the last time he used was about 3-1/2 weeks ago when he was in [place] although is toxicology screen is positive. Initially when I saw him this morning he appeared to be and hemodynamically stable. He did complain of having diarrhea. Couple of hours later I was called by the nurse as he apparently became agitated and was hallucinating. He has he really has not been getting the Ativan as it was ordered having only received 2 doses since admission. He also has not received the banana bag as ordered. Patient is definitely withdrawing from something likely alcohol and possibly all other illicit drugs Reason For Visit: SUBSTANCE ABUSE,DELIRIUM TREMENS,PALPITATIONS Physical Exam Vital Signs: Temp Pulse Resp BP Pulse Ox 98.3 F 78 18 119/73 99 07/08/18 11:30 07/08/18 12:18 07/08/18 12:18 07/08/18 11:30 07/08/18 12:18 Intake & Output 07/07/18 07/08/18 07/09/18 06:59 06:59 06:59 Intake Total 2608 620 Output Total 400 Balance 2208 620 Weight 62.7 kg General appearance: PRESENT: no acute distress, well-developed, well-nourished Head exam: PRESENT: atraumatic, normocephalic Eye exam: PRESENT: conjunctiva pink, EOMI, PERRLA. ABSENT: scleral icterus Ear exam: PRESENT: normal external ear exam Mouth exam: PRESENT: moist, tongue midline Neck exam: ABSENT: carotid bruit, JVD, lymphadenopathy, thyromegaly Respiratory exam: PRESENT: clear to auscultation yang. ABSENT: rales, rhonchi, wheezes Cardiovascular exam: PRESENT: RRR. ABSENT: diastolic murmur, rubs, systolic murmur Pulses: PRESENT: normal dorsalis pedis pul Vascular exam: PRESENT: normal capillary refill GI/Abdominal exam: PRESENT: normal bowel sounds, soft. ABSENT: distended, guarding, mass, organolmegaly, rebound, tenderness Rectal exam: PRESENT: deferred Extremities exam: PRESENT: full ROM. ABSENT: calf tenderness, clubbing, pedal edema Neurological exam: PRESENT: alert, awake, oriented to person, oriented to place, oriented to time, oriented to situation, CN II-XII grossly intact, other - Tremors do appear to be less. ABSENT: motor sensory deficit Psychiatric exam: PRESENT: appropriate affect, normal mood. ABSENT: homicidal ideation, suicidal ideation Skin exam: PRESENT: dry, intact, warm. ABSENT: cyanosis, rash Results Laboratory Results: 07/08/18 06:24 07/08/18 06:24 07/07/18 07/08/18 07/08/18 10:10 06:24 06:24 WBC 5.2 RBC 3.56 L Hgb 12.5 L Hct 35.4 L MCV 99 H MCH 34.9 H MCHC 35.1 RDW 12.2 Plt Count 128 L Sodium 135.2 L Potassium 3.9 Chloride 103 Carbon Dioxide 24 Anion Gap 8 BUN 7 Creatinine 0.74 Est GFR ( Amer) > 60 Est GFR (Non-Af Amer) > 60 Glucose 84 Calcium 9.3 Phosphorus 3.3 Magnesium 1.7 Total Bilirubin 1.5 H AST 68 H ALT 57 Alkaline Phosphatase 83 Total Protein 6.9 Albumin 4.0 TSH 3.40 Free T4 0.94 07/07/18 07/07/18 07/07/18 10:10 10:10 14:40 Creatine Kinase 72 CK-MB (CK-2) 0.75 Troponin I < 0.012 0.013 Impressions: Head MRI 07/07/18 00:00 IMPRESSION: Redemonstrated encephalomalacia of the left frontal pole and left temporal pole. No acute MR abnormality of the brain. No abnormal intracranial contrast enhancement. EVIDENCE OF ACUTE STROKE: NO. Chest X-Ray 07/07/18 10:26 IMPRESSION: NO ACUTE RADIOGRAPHIC FINDING IN THE CHEST. Head CT 07/07/18 10:27 IMPRESSION: Chronic ischemic changes. EVIDENCE OF ACUTE STROKE: NO. Chest/Abdomen CTA 07/07/18 14:06 IMPRESSION: NORMAL CTA OF THE CHEST. NO PULMONARY EMBOLI. Assessment & Plan - Diagnosis (1) Substance abuse Is this a current diagnosis for this admission?: Yes (2) EtOH dependence Qualifiers: Substance use status: in withdrawal Complication of substance-induced condition: with delirium Qualified Code(s): F10.231 - Alcohol dependence with withdrawal delirium Is this a current diagnosis for this admission?: Yes (3) Delirium tremens Is this a current diagnosis for this admission?: Yes (4) Electrolyte imbalance Is this a current diagnosis for this admission?: Yes - Time Time Spent with patient: 25-34 minutes Medications reviewed and adjusted accordingly: Yes Anticipated discharge: Home Within: within 72 hours - Inpatient Certification Based on my medical assessment, after consideration of the patient's comorbidities, presenting symptoms, or acuity I expect that the services needed warrant INPATIENT care.: Yes Medical Necessity: Need For IV Fluids, Risk of Complication if Not Cared For in Hospital - Plan Summary Plan Summary: Most likely etiology for patient's hallucinations and other vasomotor symptoms appear to be alcohol and possibly other illicit drug withdrawal although patient denies any drug abuse. Last drink was about 4 days ago. I will also check his B12 and folic acid level. Patient will be given replacement multiple, B12 and thiamine. Of note is the fact that he did state that he was not able to ambulate although that has improved today. Will be concerned about alcohol related brain damage including Wernicke-Korsakoff syndrome.
[2018-07-08] MEDS ORDERED: LORAZEPAM INJ 2 MG/1 ML VIAL IV ONE (15:15)
[2018-07-08] MEDS: BANANA BAG IV SCH ×5 (17:11)
[2018-07-09 05:50] LABS: ABSOLUTE BASOPHILS # (AUTO) 0.1 10^3/uL (0.0-0.2); ABSOLUTE EOSINOPHILS # (AUTO) 0.1 10^3/uL (0.0-0.6); ABSOLUTE LYMPHOCYTES (AUTO) 0.9 10^3/uL (0.5-4.7); ABSOLUTE MONOCYTES (AUTO) 0.4 10^3/uL (0.1-1.4); ABSOLUTE NEUT (AUTO) 2.8 10^3/uL (1.7-8.2); BASOPHILS % (AUTO) 1.2 % (0-2); EOSINOPHILS % (AUTO) 2.1 % (0-6); HEMATOCRIT 32.2 % (37.9-51.0); HEMOGLOBIN 11.3 g/dL (13.5-17.0); LYMPHOCYTES % (AUTO) 21.9 % (13-45); MEAN CORPUSCULAR HEMOGLOBIN 34.9 pg (27.0-33.4); MEAN CORPUSCULAR VOLUME 100 fl (80-97); MONOCYTES % (AUTO) 9.9 % (3-13); PLATELET COUNT 109 10^3/uL (150-450); RED BLOOD COUNT 3.23 10^6/uL (4.35-5.55); RED CELL DISTRIBUTION WIDTH 12.5 % (11.5-14.0); SEGMENTED NEUTROPHILS % (AUTO) 64.9 % (42-78); TOTAL CELLS COUNTED % (AUTO) 100 %; WHITE BLOOD COUNT 4.3 10^3/uL (4.0-10.5)
[2018-07-09 05:51] LABS: INTERNATIONAL RATION (INR) 0.87; PROTHROMBIN TIME 12.3 SEC (11.4-15.4)
[2018-07-09] MEDS: LORAZEPAM INJ 2 MG/1 ML VIAL IV PRN ×6 (07:14→21:10)
[2018-07-09 07:20] LABS: ANION GAP 4 (5-19); BLOOD UREA NITROGEN 5 mg/dL (7-20); CALCIUM 8.9 mg/dL (8.4-10.2); CARBON DIOXIDE 23 mmol/L (22-30); CHLORIDE 112 mmol/L (98-107); GLUCOSE 89 mg/dL (75-110); POTASSIUM 3.7 mmol/L (3.6-5.0); SODIUM 139.3 mmol/L (137-145)
[2018-07-09] MEDS: ENOXAPARIN SODIUM INJ 40 MG/0.4 ML DISP.SYRIN SUBCUT SCH (10:30)
[2018-07-09] MEDS: FAMOTIDINE 20 MG TABLET PO SCH ×2 (10:30→21:10)
[2018-07-09] MEDS: DOCUSATE SODIUM 100 MG CAPSULE PO SCH (10:30)
[2018-07-09] MEDS: NORMAL SALINE 1000 ML 1,000 ML IV PRN (12:17)
--- NOTE | 2018-07-09 16:24 | PDOC PROGRESS REPORT ---
Subjective Progress Note for:: 07/09/18 Subjective:: Patient much calmer today, fewer hallucinations, less agitated Reason For Visit: SUBSTANCE ABUSE,DELIRIUM TREMENS,PALPITATIONS Physical Exam Vital Signs: Temp Pulse Resp BP Pulse Ox 98.4 F 74 16 104/69 97 07/09/18 11:23 07/09/18 11:23 07/09/18 11:23 07/09/18 11:23 07/09/18 11:23 Intake & Output 07/08/18 07/09/18 07/10/18 06:59 06:59 06:59 Intake Total 2608 3040 Output Total 400 Balance 2208 3040 Weight 62.7 kg 68.4 kg General appearance: PRESENT: no acute distress, thin Head exam: PRESENT: atraumatic, normocephalic Eye exam: PRESENT: conjunctiva pink, EOMI, PERRLA. ABSENT: scleral icterus Ear exam: PRESENT: normal external ear exam Mouth exam: PRESENT: moist, tongue midline Neck exam: ABSENT: carotid bruit, JVD, lymphadenopathy, thyromegaly Respiratory exam: PRESENT: clear to auscultation yang. ABSENT: rales, rhonchi, wheezes Cardiovascular exam: PRESENT: RRR. ABSENT: diastolic murmur, rubs, systolic murmur Pulses: PRESENT: normal dorsalis pedis pul Vascular exam: PRESENT: normal capillary refill GI/Abdominal exam: PRESENT: normal bowel sounds, soft. ABSENT: distended, guarding, mass, organolmegaly, rebound, tenderness Rectal exam: PRESENT: deferred Extremities exam: PRESENT: full ROM. ABSENT: calf tenderness, clubbing, pedal edema Neurological exam: PRESENT: alert, awake, oriented to person, oriented to place, oriented to time, oriented to situation, abnormal gait, motor sensory deficit, other - tremots, ataxic. ABSENT: normal gait Psychiatric exam: PRESENT: appropriate affect. ABSENT: homicidal ideation, suicidal ideation Skin exam: PRESENT: dry, intact, warm. ABSENT: cyanosis, rash Results Laboratory Results: 07/09/18 05:30 07/09/18 05:30 07/09/18 07/09/18 05:30 05:30 WBC 4.3 RBC 3.23 L Hgb 11.3 L Hct 32.2 L MCV 100 H MCH 34.9 H MCHC 35.0 RDW 12.5 Plt Count 109 L Seg Neutrophils % 64.9 Lymphocytes % 21.9 Monocytes % 9.9 Eosinophils % 2.1 Basophils % 1.2 Absolute Neutrophils 2.8 Absolute Lymphocytes 0.9 Absolute Monocytes 0.4 Absolute Eosinophils 0.1 Absolute Basophils 0.1 Sodium 139.3 Potassium 3.7 Chloride 112 H Carbon Dioxide 23 Anion Gap 4 L BUN 5 L Creatinine 0.64 Est GFR ( Amer) > 60 Est GFR (Non-Af Amer) > 60 Glucose 89 Calcium 8.9 Magnesium 1.9 Vitamin B12 380.0 Folate 12.90 07/07/18 07/07/18 07/07/18 10:10 10:10 14:40 Creatine Kinase 72 CK-MB (CK-2) 0.75 Troponin I < 0.012 0.013 Impressions: Head MRI 07/07/18 00:00 IMPRESSION: Redemonstrated encephalomalacia of the left frontal pole and left temporal pole. No acute MR abnormality of the brain. No abnormal intracranial contrast enhancement. EVIDENCE OF ACUTE STROKE: NO. Chest X-Ray 07/07/18 10:26 IMPRESSION: NO ACUTE RADIOGRAPHIC FINDING IN THE CHEST. Head CT 07/07/18 10:27 IMPRESSION: Chronic ischemic changes. EVIDENCE OF ACUTE STROKE: NO. Chest/Abdomen CTA 07/07/18 14:06 IMPRESSION: NORMAL CTA OF THE CHEST. NO PULMONARY EMBOLI. Assessment & Plan - Diagnosis (1) Substance abuse Is this a current diagnosis for this admission?: Yes Plan: Counseling (2) EtOH dependence Qualifiers: Substance use status: in withdrawal Complication of substance-induced condition: with delirium Qualified Code(s): F10.231 - Alcohol dependence with withdrawal delirium Is this a current diagnosis for this admission?: Yes (3) Delirium tremens Is this a current diagnosis for this admission?: Yes Plan: Continue supportive care (4) Electrolyte imbalance Is this a current diagnosis for this admission?: Yes Plan: Secondary to ETOH abuse Resolved - Time Time Spent with patient: 15-24 minutes Medications reviewed and adjusted accordingly: Yes Anticipated discharge: Home Within: within 72 hours - Inpatient Certification Based on my medical assessment, after consideration of the patient's comorbidities, presenting symptoms, or acuity I expect that the services needed warrant INPATIENT care.: Yes Medical Necessity: Need For IV Fluids, Risk of Complication if Not Cared For in Hospital, Risk of Diagnosis Which Will Require Inpatient Eval/Care/Monitoring
[2018-07-09] MEDS: BANANA BAG IV SCH ×5 (17:42)
[2018-07-10] MEDS: NORMAL SALINE 1000 ML 1,000 ML IV PRN (03:04)
[2018-07-10] MEDS: LORAZEPAM INJ 2 MG/1 ML VIAL IV PRN ×2 (06:24→10:31)
[2018-07-10] MEDS: ENOXAPARIN SODIUM INJ 40 MG/0.4 ML DISP.SYRIN SUBCUT SCH (10:23)
[2018-07-10] MEDS: FAMOTIDINE 20 MG TABLET PO SCH ×2 (10:31→21:28)
[2018-07-10] MEDS: DOCUSATE SODIUM 100 MG CAPSULE PO SCH (10:31)
--- NOTE | 2018-07-10 12:40 | PDOC PROGRESS REPORT ---
Subjective Subjective:: Patient much calmer today, fewer hallucinations, less agitated Sttill c/o inability to walk and still ataxic Reason For Visit: SUBSTANCE ABUSE,DELIRIUM TREMENS,PALPITATIONS Physical Exam Vital Signs: Temp Pulse Resp BP Pulse Ox 98.6 F 69 16 117/73 99 07/10/18 08:07 07/10/18 12:12 07/10/18 12:12 07/10/18 08:07 07/10/18 12:12 Intake & Output 07/09/18 07/10/18 07/11/18 06:59 06:59 06:59 Intake Total 3040 3062 Output Total 1400 Balance 3040 1662 Weight 68.4 kg 68.5 kg General appearance: PRESENT: no acute distress, thin Head exam: PRESENT: atraumatic, normocephalic Eye exam: PRESENT: conjunctiva pink, EOMI, PERRLA. ABSENT: scleral icterus Ear exam: PRESENT: normal external ear exam Mouth exam: PRESENT: moist, tongue midline Neck exam: ABSENT: carotid bruit, JVD, lymphadenopathy, thyromegaly Respiratory exam: PRESENT: clear to auscultation yang. ABSENT: rales, rhonchi, wheezes Cardiovascular exam: PRESENT: RRR. ABSENT: diastolic murmur, rubs, systolic murmur Pulses: PRESENT: normal dorsalis pedis pul Vascular exam: PRESENT: normal capillary refill GI/Abdominal exam: PRESENT: normal bowel sounds, soft. ABSENT: distended, guarding, mass, organolmegaly, rebound, tenderness Rectal exam: PRESENT: deferred Extremities exam: PRESENT: full ROM. ABSENT: calf tenderness, clubbing, pedal edema Musculoskeletal exam: PRESENT: ambulatory Neurological exam: PRESENT: alert, awake, oriented to person, oriented to place, oriented to time, oriented to situation, abnormal gait, other - trmors improved. ABSENT: motor sensory deficit Psychiatric exam: PRESENT: appropriate affect, normal mood. ABSENT: homicidal ideation, suicidal ideation Skin exam: PRESENT: dry, intact, warm. ABSENT: cyanosis, rash Results Laboratory Results: 07/09/18 05:30 07/09/18 05:30 07/07/18 07/07/18 07/07/18 10:10 10:10 14:40 Creatine Kinase 72 CK-MB (CK-2) 0.75 Troponin I < 0.012 0.013 Impressions: Head MRI 07/07/18 00:00 IMPRESSION: Redemonstrated encephalomalacia of the left frontal pole and left temporal pole. No acute MR abnormality of the brain. No abnormal intracranial contrast enhancement. EVIDENCE OF ACUTE STROKE: NO. Chest X-Ray 07/07/18 10:26 IMPRESSION: NO ACUTE RADIOGRAPHIC FINDING IN THE CHEST. Head CT 07/07/18 10:27 IMPRESSION: Chronic ischemic changes. EVIDENCE OF ACUTE STROKE: NO. Chest/Abdomen CTA 07/07/18 14:06 IMPRESSION: NORMAL CTA OF THE CHEST. NO PULMONARY EMBOLI. Assessment & Plan - Diagnosis (1) Substance abuse Is this a current diagnosis for this admission?: Yes Plan: Counseling (2) EtOH dependence Qualifiers: Substance use status: in withdrawal Complication of substance-induced condition: with delirium Qualified Code(s): F10.231 - Alcohol dependence with withdrawal delirium Is this a current diagnosis for this admission?: Yes Plan: Concern about B12 deficiency and Post cerebellar degeneration/spinal Cont B12 replacement Will obtain MRI LS spine (3) Delirium tremens Is this a current diagnosis for this admission?: Yes Plan: Resolving, cont benzo (4) Electrolyte imbalance Is this a current diagnosis for this admission?: Yes Plan: Replace as needed - Time Time Spent with patient: 25-34 minutes Medications reviewed and adjusted accordingly: Yes Anticipated discharge: Home Within: within 72 hours - Inpatient Certification Based on my medical assessment, after consideration of the patient's comorbidities, presenting symptoms, or acuity I expect that the services needed warrant INPATIENT care.: Yes Medical Necessity: Need For IV Fluids, Risk of Complication if Not Cared For in Hospital
[2018-07-10] MEDS ORDERED: ONDANSETRON 4 MG TAB.RAPDIS PO PRN (14:00)
--- NOTE | 2018-07-10 15:58 | RADIOLOGY REPORT (SQ) ---
EXAM DESCRIPTION: MRI LUMBAR SPINE COMBO COMPLETED DATE/TIME: 07/10/2018 3:22 pm REASON FOR STUDY: Ataxia, weakness, dysequilibrium COMPARISON: None. TECHNIQUE: Sagittal and Axial imaging includes T1, T1 post gadolinium, T2, STIR and gradient echo se quences. Coronal T2/HASTE imaging. CONTRAST TYPE AND DOSE: 15 mL Dotarem. RENAL FUNCTION: GFR > 60. LIMITATIONS: None. FINDINGS: VISUALIZED UPPER ABDOMEN: Limited evaluation. No acute or suspicious findings suggested. SEGMENTATION: No transitional anatomy. The lowest well-developed disc space is labeled L5-S1. ALIGNMENT: Mild scoliosis. There is lateral slippage to the right of the L3 vertebra on L4. VERTEBRAE: Intact. No fractures. BONE MARROW: No marrow replacement. Marked reactive endplate signal at L3-L4. DISC SIGNAL: Decreased height and signal, particularly at L3-L4. POSTERIOR ELEMENTS: Generally intact. No pars defect evident. HARDWARE: None in the spine. CORD AND CONUS: Normal in size and signal intensity. Conus at the appropriate level. SOFT TISSUES: No aortic aneurysm seen. No bulky retroperitoneal adenopathy or mass. No paraspinal mas s or fluid. L1-L2: No significant spinal stenosis or exit foraminal stenosis. L2-L3: No significant spinal stenosis or exit foraminal stenosis. L3-L4: Mild diffuse posterior disc bulge. Mild to moderate facet arthropathy and ligamentum flavum t hickening, left greater than right. Mild spinal stenosis and moderate to severe left lateral recess stenosis. L4-L5: Mild diffuse posterior disc bulge. Moderate facet arthropathy. No significant spinal stenosi s or exit foraminal stenosis. L5-S1: No significant disc bulge. Mild facet arthropathy. No significant spinal stenosis or exit fo raminal stenosis. LOWER THORACIC: Incompletely imaged. No stenosis seen. SACRUM: Visualized upper sacrum intact. ENHANCEMENT: No abnormal enhancement. OTHER: No other significant findings. IMPRESSION: 1. MALALIGNMENT WITH LATERAL SLIPPAGE OF THE L3 VERTEBRA ON L4. 2. MARKED DEGENERATIVE DISC DISEASE AT L3-L4. MILD DISC BULGE AND MILD TO MODERATE FACET ARTHROPATHY , WORSE ON THE LEFT, RESULTING IN MILD SPINAL STENOSIS AND MODERATE TO SEVERE LEFT LATERAL RECESS BIJAL NOSIS. 3. MILDER DEGENERATIVE CHANGES ELSEWHERE DESCRIBED WITH NO OTHER AREAS OF STENOSIS OR IMPINGEMENT. TECHNICAL DOCUMENTATION: JOB ID: [id number] [email or web address]- All Rights Reserved Reading location - IP/workstation name: [email or web address]
[2018-07-10] MEDS: BANANA BAG IV SCH ×5 (17:08)
[2018-07-10] MEDS: LORAZEPAM 1 MG TABLET PO SCH ×2 (17:10→23:42)
[2018-07-11] MEDS: NORMAL SALINE 1000 ML 1,000 ML IV PRN ×2 (01:31→10:17)
[2018-07-11] MEDS: LORAZEPAM 1 MG TABLET PO SCH ×4 (05:27→23:51)
[2018-07-11 07:15] LABS: ABSOLUTE BASOPHILS # (AUTO) 0.1 10^3/uL (0.0-0.2); ABSOLUTE EOSINOPHILS # (AUTO) 0.1 10^3/uL (0.0-0.6); ABSOLUTE LYMPHOCYTES (AUTO) 1.4 10^3/uL (0.5-4.7); ABSOLUTE MONOCYTES (AUTO) 0.7 10^3/uL (0.1-1.4); ABSOLUTE NEUT (AUTO) 4.3 10^3/uL (1.7-8.2); EOSINOPHILS % (AUTO) 1.7 % (0-6); HEMATOCRIT 29.7 % (37.9-51.0); HEMOGLOBIN 10.5 g/dL (13.5-17.0); MEAN CORPUSCULAR HEMOGLOBIN 35.6 pg (27.0-33.4); MEAN CORPUSCULAR HGB CONC 35.2 g/dL (32.0-36.0); MEAN CORPUSCULAR VOLUME 101 fl (80-97); MONOCYTES % (AUTO) 10.8 % (3-13); PLATELET COUNT 128 10^3/uL (150-450); RED BLOOD COUNT 2.94 10^6/uL (4.35-5.55); RED CELL DISTRIBUTION WIDTH 12.7 % (11.5-14.0); SEGMENTED NEUTROPHILS % (AUTO) 65.5 % (42-78); TOTAL CELLS COUNTED % (AUTO) 100 %; WHITE BLOOD COUNT 6.5 10^3/uL (4.0-10.5)
[2018-07-11 07:34] LABS: ALANINE AMINOTRANSFERASE 43 U/L (21-72); ALBUMIN 3.1 g/dL (3.5-5.0); ALKALINE PHOSPHATASE 60 U/L (38-126); ANION GAP 6 (5-19); ASPARTATE AMINO TRANSFERASE 37 U/L (17-59); BILIRUBIN,DIRECT 0.3 mg/dL (0.0-0.4); BILIRUBIN,TOTAL 0.5 mg/dL (0.2-1.3); BLOOD UREA NITROGEN 7 mg/dL (7-20); CALCIUM 8.7 mg/dL (8.4-10.2); CARBON DIOXIDE 22 mmol/L (22-30); CHLORIDE 112 mmol/L (98-107); GLUCOSE 87 mg/dL (75-110); POTASSIUM 3.9 mmol/L (3.6-5.0); SODIUM 140.1 mmol/L (137-145); TOTAL PROTEIN 5.7 g/dL (6.3-8.2)
[2018-07-11] MEDS: ENOXAPARIN SODIUM INJ 40 MG/0.4 ML DISP.SYRIN SUBCUT SCH (09:42)
[2018-07-11] MEDS: FAMOTIDINE 20 MG TABLET PO SCH ×2 (09:45→22:00)
[2018-07-11] MEDS: DOCUSATE SODIUM 100 MG CAPSULE PO SCH (09:45)
[2018-07-11] MEDS: LORAZEPAM INJ 2 MG/1 ML VIAL IV PRN (15:16)
--- NOTE | 2018-07-11 17:32 | PDOC PROGRESS REPORT ---
Subjective Progress Note for:: 07/11/18 Subjective:: Patient continues to improve. Gait still unsteady and unsafe to ambulate by himself His tremors and mental status have improved though Reason For Visit: SUBSTANCE ABUSE,DELIRIUM TREMENS,PALPITATIONS Physical Exam Vital Signs: Temp Pulse Resp BP Pulse Ox 98.5 F 59 L 18 119/79 98 07/11/18 11:17 07/11/18 11:17 07/11/18 11:17 07/11/18 11:17 07/11/18 11:17 Intake & Output 07/10/18 07/11/18 07/12/18 06:59 06:59 06:59 Intake Total 3062 3320 1000 Output Total 1400 1250 Balance 1662 2070 1000 Weight 68.5 kg 69.9 kg General appearance: PRESENT: no acute distress, thin Head exam: PRESENT: atraumatic, normocephalic Eye exam: PRESENT: conjunctiva pink, EOMI, PERRLA. ABSENT: scleral icterus Ear exam: PRESENT: normal external ear exam Mouth exam: PRESENT: moist, tongue midline Neck exam: ABSENT: carotid bruit, JVD, lymphadenopathy, thyromegaly Respiratory exam: PRESENT: clear to auscultation yang. ABSENT: rales, rhonchi, wheezes Cardiovascular exam: PRESENT: RRR, +S1, +S2. ABSENT: diastolic murmur, rubs, systolic murmur Pulses: PRESENT: normal dorsalis pedis pul Vascular exam: PRESENT: normal capillary refill GI/Abdominal exam: PRESENT: normal bowel sounds, soft. ABSENT: distended, guarding, mass, organolmegaly, rebound, tenderness Rectal exam: PRESENT: deferred Extremities exam: PRESENT: full ROM, other - tremors upper extremity. ABSENT: calf tenderness, clubbing, pedal edema Neurological exam: PRESENT: alert, awake, oriented to person, oriented to place, oriented to time, oriented to situation, CN II-XII grossly intact, motor sensory deficit. ABSENT: normal gait Psychiatric exam: PRESENT: appropriate affect, normal mood. ABSENT: homicidal ideation, suicidal ideation Skin exam: PRESENT: dry, intact, warm. ABSENT: cyanosis, rash Results Laboratory Results: 07/11/18 06:36 07/11/18 06:36 07/11/18 07/11/18 06:36 06:36 WBC 6.5 RBC 2.94 L Hgb 10.5 L Hct 29.7 L MCV 101 H MCH 35.6 H MCHC 35.2 RDW 12.7 Plt Count 128 L Seg Neutrophils % 65.5 Lymphocytes % 21.0 Monocytes % 10.8 Eosinophils % 1.7 Basophils % 1.0 Absolute Neutrophils 4.3 Absolute Lymphocytes 1.4 Absolute Monocytes 0.7 Absolute Eosinophils 0.1 Absolute Basophils 0.1 Sodium 140.1 Potassium 3.9 Chloride 112 H Carbon Dioxide 22 Anion Gap 6 BUN 7 Creatinine 0.69 Est GFR ( Amer) > 60 Est GFR (Non-Af Amer) > 60 Glucose 87 Calcium 8.7 Magnesium 1.9 Total Bilirubin 0.5 AST 37 ALT 43 Alkaline Phosphatase 60 Total Protein 5.7 L Albumin 3.1 L 07/07/18 07/07/18 07/07/18 10:10 10:10 14:40 Creatine Kinase 72 CK-MB (CK-2) 0.75 Troponin I < 0.012 0.013 Impressions: Head MRI 07/07/18 00:00 IMPRESSION: Redemonstrated encephalomalacia of the left frontal pole and left temporal pole. No acute MR abnormality of the brain. No abnormal intracranial contrast enhancement. EVIDENCE OF ACUTE STROKE: NO. Chest X-Ray 07/07/18 10:26 IMPRESSION: NO ACUTE RADIOGRAPHIC FINDING IN THE CHEST. Head CT 07/07/18 10:27 IMPRESSION: Chronic ischemic changes. EVIDENCE OF ACUTE STROKE: NO. Chest/Abdomen CTA 07/07/18 14:06 IMPRESSION: NORMAL CTA OF THE CHEST. NO PULMONARY EMBOLI. Lumbar Spine MRI 07/10/18 00:00 IMPRESSION: 1. MALALIGNMENT WITH LATERAL SLIPPAGE OF THE L3 VERTEBRA ON L4. 2. MARKED DEGENERATIVE DISC DISEASE AT L3-L4. MILD DISC BULGE AND MILD TO M ODERATE FACET ARTHROPATHY, WORSE ON THE LEFT, RESULTING IN MILD SPINAL STENOSIS AND MODERATE TO SEVERE LEFT LATERAL RECESS STENOSIS. 3. MILDER DEGENERATIVE CHANGES ELSEWHERE DESCRIBED WITH NO OTHER AREAS OF STENOSIS OR IMPINGEMENT. Assessment & Plan - Diagnosis (1) Substance abuse Is this a current diagnosis for this admission?: Yes (2) EtOH dependence Qualifiers: Substance use status: in withdrawal Complication of substance-induced condition: with delirium Qualified Code(s): F10.231 - Alcohol dependence with withdrawal delirium Is this a current diagnosis for this admission?: Yes (3) Delirium tremens Is this a current diagnosis for this admission?: Yes (4) Electrolyte imbalance Is this a current diagnosis for this admission?: Yes - Time Time Spent with patient: 15-24 minutes Medications reviewed and adjusted accordingly: Yes Anticipated discharge: Acute Rehab Within: within 72 hours - Will transfer to medical floor, continue to monitor. He may need Rehab if ambulation doesn't improve
[2018-07-12] MEDS: LORAZEPAM 1 MG TABLET PO SCH ×3 (05:37→18:45)
[2018-07-12] MEDS: NORMAL SALINE 1000 ML 1,000 ML IV PRN (09:55)
[2018-07-12] MEDS: ENOXAPARIN SODIUM INJ 40 MG/0.4 ML DISP.SYRIN SUBCUT SCH (09:55)
[2018-07-12] MEDS: DOCUSATE SODIUM 100 MG CAPSULE PO SCH (10:02)
[2018-07-12] MEDS: FOLIC ACID 1 MG TABLET PO SCH (10:02)
[2018-07-12] MEDS: MULTIVITAMIN TABLET PO SCH (10:02)
[2018-07-12] MEDS: FAMOTIDINE 20 MG TABLET PO SCH ×2 (10:02→21:54)
--- NOTE | 2018-07-12 17:35 | PDOC PROGRESS REPORT ---
Subjective Progress Note for:: 07/12/18 Subjective:: Patient continues to improve. Gait still unsteady and unsafe to ambulate by himself His tremors and mental status continue to improve Reason For Visit: SUBSTANCE ABUSE,DELIRIUM TREMENS,PALPITATIONS Physical Exam Vital Signs: Temp Pulse Resp BP Pulse Ox 98.1 F 65 17 144/88 H 100 07/12/18 16:01 07/12/18 16:01 07/12/18 16:01 07/12/18 16:01 07/12/18 16:01 Intake & Output 07/11/18 07/12/18 07/13/18 06:59 06:59 06:59 Intake Total 3320 3919 750 Output Total 1250 700 Balance 2070 3219 750 Weight 69.9 kg 74.4 kg General appearance: PRESENT: no acute distress, thin Head exam: PRESENT: atraumatic, normocephalic Eye exam: PRESENT: conjunctiva pink, EOMI, PERRLA. ABSENT: scleral icterus Ear exam: PRESENT: normal external ear exam Mouth exam: PRESENT: moist, tongue midline Neck exam: ABSENT: carotid bruit, JVD, lymphadenopathy, thyromegaly Respiratory exam: PRESENT: clear to auscultation yang. ABSENT: rales, rhonchi, wheezes Cardiovascular exam: PRESENT: RRR, +S1, +S2. ABSENT: diastolic murmur, rubs, systolic murmur Pulses: PRESENT: normal dorsalis pedis pul Vascular exam: PRESENT: normal capillary refill GI/Abdominal exam: PRESENT: normal bowel sounds, soft. ABSENT: distended, guarding, mass, organolmegaly, rebound, tenderness Rectal exam: PRESENT: deferred Extremities exam: PRESENT: full ROM. ABSENT: calf tenderness, clubbing, pedal edema Neurological exam: PRESENT: alert, awake, oriented to person, oriented to place, oriented to time, oriented to situation, abnormal gait. ABSENT: motor sensory deficit Psychiatric exam: PRESENT: appropriate affect, normal mood. ABSENT: homicidal ideation, suicidal ideation Skin exam: PRESENT: dry, intact, warm. ABSENT: cyanosis, rash Results Laboratory Results: 07/11/18 06:36 07/11/18 06:36 07/07/18 07/07/18 07/07/18 10:10 10:10 14:40 Creatine Kinase 72 CK-MB (CK-2) 0.75 Troponin I < 0.012 0.013 Impressions: Head MRI 07/07/18 00:00 IMPRESSION: Redemonstrated encephalomalacia of the left frontal pole and left temporal pole. No acute MR abnormality of the brain. No abnormal intracranial contrast enhancement. EVIDENCE OF ACUTE STROKE: NO. Chest X-Ray 07/07/18 10:26 IMPRESSION: NO ACUTE RADIOGRAPHIC FINDING IN THE CHEST. Head CT 07/07/18 10:27 IMPRESSION: Chronic ischemic changes. EVIDENCE OF ACUTE STROKE: NO. Chest/Abdomen CTA 07/07/18 14:06 IMPRESSION: NORMAL CTA OF THE CHEST. NO PULMONARY EMBOLI. Lumbar Spine MRI 07/10/18 00:00 IMPRESSION: 1. MALALIGNMENT WITH LATERAL SLIPPAGE OF THE L3 VERTEBRA ON L4. 2. MARKED DEGENERATIVE DISC DISEASE AT L3-L4. MILD DISC BULGE AND MILD TO MODERATE FACET ARTHROPATHY, WORSE ON THE LEFT, RESULTING IN MILD SPINAL STENOSIS AND MODERATE TO SEVERE LEFT LATERAL RECESS STENOSIS. 3. MILDER DEGENERATIVE CHANGES ELSEWHERE DESCRIBED WITH NO OTHER AREAS OF STENOSIS OR IMPINGEMENT. Assessment & Plan - Diagnosis (1) Substance abuse Is this a current diagnosis for this admission?: Yes (2) EtOH dependence Qualifiers: Substance use status: in withdrawal Complication of substance-induced condition: with delirium Qualified Code(s): F10.231 - Alcohol dependence with withdrawal delirium Is this a current diagnosis for this admission?: Yes (3) Delirium tremens Is this a current diagnosis for this admission?: Yes (4) Electrolyte imbalance Is this a current diagnosis for this admission?: Yes - Time Time Spent with patient: 15-24 minutes Medications reviewed and adjusted accordingly: Yes Anticipated discharge: Home Within: within 48 hours - Inpatient Certification Based on my medical assessment, after consideration of the patient's comorbidities, presenting symptoms, or acuity I expect that the services needed warrant INPATIENT care.: Yes Medical Necessity: Need Close Monitoring Due to Risk of Patient Decompensation, Risk of Complication if Not Cared For in Hospital
[2018-07-13] MEDS: LORAZEPAM 1 MG TABLET PO SCH ×4 (00:31→18:12)
[2018-07-13] MEDS: NORMAL SALINE 1000 ML 1,000 ML IV PRN ×2 (04:58→18:12)
[2018-07-13] MEDS: ENOXAPARIN SODIUM INJ 40 MG/0.4 ML DISP.SYRIN SUBCUT SCH (10:07)
[2018-07-13] MEDS: FAMOTIDINE 20 MG TABLET PO SCH ×2 (10:10→21:24)
[2018-07-13] MEDS: DOCUSATE SODIUM 100 MG CAPSULE PO SCH (10:10)
[2018-07-13] MEDS: MULTIVITAMIN TABLET PO SCH (10:10)
[2018-07-13] MEDS: ACETAMINOPHEN 325 MG TABLET PO PRN (10:11)
[2018-07-13] MEDS: FOLIC ACID 1 MG TABLET PO SCH (10:11)
--- NOTE | 2018-07-13 14:54 | PDOC PROGRESS REPORT ---
Subjective Progress Note for:: 07/13/18 Subjective:: Patient continues to improve. Gait improving, ambulated with walker His tremors and mental status continue to improve Patient appears reluctant to be discharged and it appears there are social issues that may be contributing Social service consult has been ordered Reason For Visit: SUBSTANCE ABUSE,DELIRIUM TREMENS,PALPITATIONS Physical Exam Vital Signs: Temp Pulse Resp BP Pulse Ox 98.4 F 66 15 111/73 97 07/13/18 11:16 07/13/18 11:16 07/13/18 11:16 07/13/18 11:16 07/13/18 11:16 Intake & Output 07/12/18 07/13/18 07/14/18 06:59 06:59 06:59 Intake Total 3919 1750 484 Output Total 700 Balance 3219 1750 484 Weight 74.4 kg 77.1 kg 77.1 kg General appearance: PRESENT: no acute distress, thin Eye exam: PRESENT: conjunctiva pink, EOMI, PERRLA. ABSENT: scleral icterus Neck exam: ABSENT: carotid bruit, JVD, lymphadenopathy, thyromegaly Respiratory exam: PRESENT: clear to auscultation yang. ABSENT: rales, rhonchi, wheezes Pulses: PRESENT: normal dorsalis pedis pul GI/Abdominal exam: PRESENT: normal bowel sounds, soft. ABSENT: distended, guarding, mass, organolmegaly, rebound, tenderness Rectal exam: PRESENT: deferred Extremities exam: PRESENT: full ROM. ABSENT: calf tenderness, clubbing, pedal edema Musculoskeletal exam: PRESENT: ambulatory - with walker Neurological exam: PRESENT: alert, awake, oriented to person, oriented to place, oriented to time, other - minimal tremor Psychiatric exam: PRESENT: flat affect Results Laboratory Results: 07/11/18 06:36 07/11/18 06:36 07/07/18 07/07/18 07/07/18 10:10 10:10 14:40 Creatine Kinase 72 CK-MB (CK-2) 0.75 Troponin I < 0.012 0.013 Impressions: Head MRI 07/07/18 00:00 IMPRESSION: Redemonstrated encephalomalacia of the left frontal pole and left temporal pole. No acute MR abnormality of the brain. No abnormal intracranial contrast enhancement. EVIDENCE OF ACUTE STROKE: NO. Chest X-Ray 07/07/18 10:26 IMPRESSION: NO ACUTE RADIOGRAPHIC FINDING IN THE CHEST. Head CT 07/07/18 10:27 IMPRESSION: Chronic ischemic changes. EVIDENCE OF ACUTE STROKE: NO. Chest/Abdomen CTA 07/07/18 14:06 IMPRESSION: NORMAL CTA OF THE CHEST. NO PULMONARY EMBOLI. Lumbar Spine MRI 07/10/18 00:00 IMPRESSION: 1. MALALIGNMENT WITH LATERAL SLIPPAGE OF THE L3 VERTEBRA ON L4. 2. MARKED DEGENERATIVE DISC DISEASE AT L3-L4. MILD DISC BULGE AND MILD TO MODERATE FACET ARTHROPATHY, WORSE ON THE LEFT, RESULTING IN MILD SPINAL STENOSIS AND MODERATE TO SEVERE LEFT LATERAL RECESS STENOSIS. 3. MILDER DEGENERATIVE CHANGES ELSEWHERE DESCRIBED WITH NO OTHER AREAS OF STENOSIS OR IMPINGEMENT. Assessment & Plan - Diagnosis (1) Substance abuse Is this a current diagnosis for this admission?: Yes Plan: Counseling (2) EtOH dependence Qualifiers: Substance use status: in withdrawal Complication of substance-induced condition: with delirium Qualified Code(s): F10.231 - Alcohol dependence with withdrawal delirium Is this a current diagnosis for this admission?: Yes Plan: Withdrawal complete. Patient needs ongoing support (3) Delirium tremens Is this a current diagnosis for this admission?: Yes Plan: Resolved (4) Electrolyte imbalance Is this a current diagnosis for this admission?: Yes Plan: Replace as needed (5) Anemia Qualifiers: Anemia type: unspecified type Qualified Code(s): D64.9 - Anemia, unspecified Is this a current diagnosis for this admission?: Yes Plan: Likely chronic. B12 studies noted, will check iron stores and CBC in am. His initial hemoglobin likely from hemoconcentration and no evidence of acute blood loss - Time Time Spent with patient: 15-24 minutes Medications reviewed and adjusted accordingly: Yes Anticipated discharge: Other Within: within 48 hours - Inpatient Certification Based on my medical assessment, after consideration of the patient's comorbidities, presenting symptoms, or acuity I expect that the services needed warrant INPATIENT care.: Yes Medical Necessity: Need Close Monitoring Due to Risk of Patient Decompensation, Risk of Complication if Not Cared For in Hospital - Plan Summary Plan Summary: Patient medically stable for dc however has social issues that need SS eval. Cont PT, discharge planning
[2018-07-14] MEDS: LORAZEPAM 1 MG TABLET PO SCH ×4 (00:07→17:23)
[2018-07-14 05:13] LABS: ANION GAP 6 (5-19); BLOOD UREA NITROGEN 9 mg/dL (7-20); CALCIUM 9.5 mg/dL (8.4-10.2); CARBON DIOXIDE 26 mmol/L (22-30); CHLORIDE 109 mmol/L (98-107); GLUCOSE 107 mg/dL (75-110); IRON(TIBC) 38.2 ug/dL (49-181); POTASSIUM 3.9 mmol/L (3.6-5.0); SODIUM 141.1 mmol/L (137-145)
[2018-07-14] MEDS: ACETAMINOPHEN 325 MG TABLET PO PRN (05:34)
--- NOTE | 2018-07-14 05:41 | RADIOLOGY REPORT (SQ) ---
CLINICAL DATA: 57-year-old male status post fall with pain along medial side of right ankle. TECHNICAL DATA: Three x-ray views of the right ankle were performed on 07/14/2018 at 5:07 AM. COMPARISONS: None FINDINGS: There is no evidence of fracture or dislocation. There is no significant arthritis or degenerative change. No focal lytic or sclerotic bone lesions are seen. Bone mineralization is normal No focal soft tissue abnormalities are identified. IMPRESSION: No evidence of acute osseous injury involving the right ankle.
--- NOTE | 2018-07-14 05:46 | RADIOLOGY REPORT (SQ) ---
CLINICAL DATA: 57-year-old male status post fall with pain along top of right foot. TECHNICAL DATA: Three x-ray views of the right foot were performed on 07/14/2018 at 5:10 AM. COMPARISONS: None FINDINGS: There is no evidence of fracture or dislocation. There are moderate arthritic changes involving the first metatarsal phalangeal joint with associated joint space narrowing, subchondral sclerosis and prominent hypertrophic spurring. The remainder of the joint spaces are relatively well-preserved. There are no lytic or sclerotic bone lesions. There is minimal hypertrophic spurring involving the medial aspect of the cuboid. Bone mineralization is normal No acute soft tissue abnormalities are identified. IMPRESSION: 1. No evidence of acute osseous injury involving the right foot. 2. Moderate arthritic changes involving the first metatarsal phalangeal joint as described above.
[2018-07-14 07:02] LABS: ABSOLUTE BASOPHILS # (AUTO) 0.1 10^3/uL (0.0-0.2); ABSOLUTE EOSINOPHILS # (AUTO) 0.1 10^3/uL (0.0-0.6); ABSOLUTE NEUT (AUTO) 4.1 10^3/uL (1.7-8.2); BASOPHILS % (AUTO) 1.1 % (0-2); EOSINOPHILS % (AUTO) 1.8 % (0-6); HEMATOCRIT 32.1 % (37.9-51.0); HEMOGLOBIN 11.2 g/dL (13.5-17.0); LYMPHOCYTES % (AUTO) 16.5 % (13-45); MEAN CORPUSCULAR HEMOGLOBIN 34.9 pg (27.0-33.4); MEAN CORPUSCULAR HGB CONC 34.9 g/dL (32.0-36.0); MEAN CORPUSCULAR VOLUME 100 fl (80-97); MONOCYTES % (AUTO) 16.4 % (3-13); RED CELL DISTRIBUTION WIDTH 12.6 % (11.5-14.0); RETICULOCYTE COUNT (AUTO) 1.87 % (0.66-2.85); SEGMENTED NEUTROPHILS % (AUTO) 64.2 % (42-78); TOTAL CELLS COUNTED % (AUTO) 100 %; WHITE BLOOD COUNT 6.3 10^3/uL (4.0-10.5)
[2018-07-14 07:24] LABS: PLATELET COUNT 290 10^3/uL (150-450)
[2018-07-14] MEDS: ENOXAPARIN SODIUM INJ 40 MG/0.4 ML DISP.SYRIN SUBCUT SCH (08:53)
[2018-07-14] MEDS: DOCUSATE SODIUM 100 MG CAPSULE PO SCH (08:53)
[2018-07-14] MEDS: FOLIC ACID 1 MG TABLET PO SCH (08:53)
[2018-07-14] MEDS: MULTIVITAMIN TABLET PO SCH (08:53)
[2018-07-14] MEDS: FAMOTIDINE 20 MG TABLET PO SCH ×2 (08:53→22:59)
[2018-07-14] MEDS: NORMAL SALINE 1000 ML 1,000 ML IV PRN (14:53)
[2018-07-14] MEDS: LORAZEPAM 0.5 MG TABLET PO SCH ×2 (18:33→23:06)
[2018-07-15] MEDS: LORAZEPAM 0.5 MG TABLET PO SCH ×3 (05:15→17:15)
[2018-07-15] MEDS: DOCUSATE SODIUM 100 MG CAPSULE PO SCH (09:49)
[2018-07-15] MEDS: FOLIC ACID 1 MG TABLET PO SCH (09:49)
[2018-07-15] MEDS: MULTIVITAMIN TABLET PO SCH (09:49)
[2018-07-15] MEDS: FAMOTIDINE 20 MG TABLET PO SCH ×2 (09:49→21:43)
[2018-07-15] MEDS: ENOXAPARIN SODIUM INJ 40 MG/0.4 ML DISP.SYRIN SUBCUT SCH (09:50)
[2018-07-15] MEDS ORDERED: LORAZEPAM 0.5 MG TABLET PO PRN (17:18)
--- NOTE | 2018-07-15 21:23 | PDOC PROGRESS REPORT ---
Subjective Progress Note for:: 07/15/18 Subjective:: 57 y.o. M who presented to the ED with dizziness, chest pounding, unsteady gait and inability to ambulate. The patient admits to daily ETOH consumption of 2 beers per day. His last ETOH intake was 4 days prior to admission (12 days ago). MRI lumbar spine reveals DJD of L3-L4. Brain MRI reveals encephalomalacia of the L frontal lobe. Patient awaiting pain management consult. Additionally, the patient had an unwitnessed fall yesterday. His main complaint after falling was ankle pain. Foot and ankle xrays negative. Whenever the topic of discharge is brought up, the patient states he is 'concerned about his safety' because he states he is 'constantly falling.' Workup is relatively normal. The patient is homeless. Concern that his reluctance to go home is related to his social situation. Requesting assistance from discharge planning Reason For Visit: SUBSTANCE ABUSE,DELIRIUM TREMENS,PALPITATIONS Physical Exam Vital Signs: Temp Pulse Resp BP Pulse Ox 98.7 F 66 16 106/62 98 07/15/18 19:34 07/15/18 19:34 07/15/18 19:34 07/15/18 19:34 07/15/18 19:34 Intake & Output 07/14/18 07/15/18 07/16/18 06:59 06:59 06:59 Intake Total 2109 2124 820 Output Total 900 Balance 2109 1224 820 Weight 77.4 kg 67.9 kg General appearance: PRESENT: no acute distress Head exam: PRESENT: atraumatic Eye exam: PRESENT: conjunctiva pink, PERRLA Mouth exam: PRESENT: moist Teeth exam: PRESENT: poor dentation Neck exam: PRESENT: full ROM Respiratory exam: PRESENT: clear to auscultation yang, symmetrical, unlabored Cardiovascular exam: PRESENT: +S1, +S2 Pulses: PRESENT: normal radial pulses GI/Abdominal exam: PRESENT: soft. ABSENT: distended, tenderness Rectal exam: PRESENT: deferred Extremities exam: PRESENT: full ROM Musculoskeletal exam: PRESENT: full ROM Neurological exam: PRESENT: alert, altered, awake Skin exam: PRESENT: intact, normal color Results Laboratory Results: 07/14/18 06:23 07/14/18 04:22 07/07/18 07/07/18 07/07/18 10:10 10:10 14:40 Creatine Kinase 72 CK-MB (CK-2) 0.75 Troponin I < 0.012 0.013 Impressions: Head MRI 07/07/18 00:00 IMPRESSION: Redemonstrated encephalomalacia of the left frontal pole and left temporal pole. No acute MR abnormality of the brain. No abnormal intracranial contrast enhancement. EVIDENCE OF ACUTE STROKE: NO. Chest X-Ray 07/07/18 10:26 IMPRESSION: NO ACUTE RADIOGRAPHIC FINDING IN THE CHEST. Head CT 07/07/18 10:27 IMPRESSION: Chronic ischemic changes. EVIDENCE OF ACUTE STROKE: NO. Chest/Abdomen CTA 07/07/18 14:06 IMPRESSION: NORMAL CTA OF THE CHEST. NO PULMONARY EMBOLI. Lumbar Spine MRI 07/10/18 00:00 IMPRESSION: 1. MALALIGNMENT WITH LATERAL SLIPPAGE OF THE L3 VERTEBRA ON L4. 2. MARKED DEGENERATIVE DISC DISEASE AT L3-L4. MILD DISC BULGE AND MILD TO MODERATE FACET ARTHROPATHY, WORSE ON THE LEFT, RESULTING IN MILD SPINAL STENOSIS AND MODERATE TO SEVERE LEFT LATERAL RECESS STENOSIS. 3. MILDER DEGENERATIVE CHANGES ELSEWHERE DESCRIBED WITH NO OTHER AREAS OF STENOSIS OR IMPINGEMENT. Ankle X-Ray 07/14/18 04:42 IMPRESSION: No evidence of acute osseous injury involving the right ankle. Foot X-Ray 07/14/18 04:42 IMPRESSION: 1. No evidence of acute osseous injury involving the right foot. 2. Moderate arthritic changes involving the first metatarsal phalangeal joint as described above. Status: Imported from PACS Assessment & Plan - Diagnosis (1) EtOH dependence Qualifiers: Substance use status: in withdrawal Complication of substance-induced condition: with delirium Qualified Code(s): F10.231 - Alcohol dependence with withdrawal delirium Is this a current diagnosis for this admission?: Yes Plan: Admits to drinking 2 beers per day, more on the weekends Ran out of money to buy ETOH 12 days ago Outside of the window for withdrawal symptoms now D/C scheduled ativan, change to PRN (2) Delirium tremens Is this a current diagnosis for this admission?: Yes Plan: Resolved (3) Lumbar disc disease Is this a current diagnosis for this admission?: Yes Plan: Lateral slippage of L3 on L4 DJD of L3-L4 Nursing staff reports the patient does not report any pain Currently receiving tylenol PO PRN - Time Time Spent with patient: 15-24 minutes Smoking Cessation Education: 3 to 10 minutes Medications reviewed and adjusted accordingly: Yes Anticipated discharge: Home Within: within 24 hours - Inpatient Certification Based on my medical assessment, after consideration of the patient's co morbidities, presenting symptoms, or acuity I expect that the services needed warrant INPATIENT care.: Yes I certify that my determination is in accordance with my understanding of Medicare's requirements for reasonable and necessary INPATIENT services [42 CFR 412.3e].: Yes Medical Necessity: Need for Pain Control - Plan Summary Plan Summary: EVAL BY PAIN MANAGEMENT. LIKELY DISCHARGE HOME TOMORROW.
[2018-07-16] MEDS: ENOXAPARIN SODIUM INJ 40 MG/0.4 ML DISP.SYRIN SUBCUT SCH (08:59)
[2018-07-16] MEDS: DOCUSATE SODIUM 100 MG CAPSULE PO SCH (09:01)
[2018-07-16] MEDS: FOLIC ACID 1 MG TABLET PO SCH (09:01)
[2018-07-16] MEDS: MULTIVITAMIN TABLET PO SCH (09:01)
[2018-07-16] MEDS: FAMOTIDINE 20 MG TABLET PO SCH (09:01)
[2018-07-16 15:24] VITALS: BP 137/97
--- NOTE | 2018-07-18 09:42 | PDOC DISCHARGE SUMMARY ---
General - Admit/Disc Date/PCP Admission Date/Primary Care Provider: 07/07/18 17:16 Discharge Date: 07/16/18 - Discharge Diagnosis (1) EtOH dependence Is this a current diagnosis for this admission?: Yes (2) Delirium tremens Is this a current diagnosis for this admission?: Yes (3) Lumbar disc disease Is this a current diagnosis for this admission?: Yes - Additional Information Resuscitation Status: Full Code Discharge Diet: As Tolerated Discharge Activity: Activity As Tolerated, Balance Activity w/Rest Home Medications: No Home Medications 07/07/18 History of Present Illness History of Present Illness: YURY SCHULTE is a 57 year old male who presents to the emergency room with the above complaints. Patient said the symptoms actually started today. He also complained of an associated headache but no blurred vision. He said he went to the [facility] today and was there he started suffering from the symptoms. There is no nausea vomiting or diarrhea or abdominal pain. She then said he had been having some palpitations off and on but he got concerned as it became worse today. Patient also has tremors and shakes. He says he drinks about 2 cans of beer daily sometimes more on the weekend. His last drink was about 4 days ago as he ran out of money to buy alcohol. Patient did try to minimize his drinking habits when I questioned him and he is pretty sure that his symptoms are not alcohol related. He said he stopped drinking before without any issues. Patient is also noted to have a positive toxicology screen for marijuana. He denies any other significant medical history Hospital Course Hospital Course: 57 y.o. M who presented to the ED with dizziness, chest pounding, unsteady gait and inability to ambulate. The patient admits to daily ETOH consumption of 2 beers per day. His last ETOH intake was 4 days prior to admission because he ran out of money to buy alcohol (per the patient's own admission). Workup was relatively benign. Cardiac enzymes normal, EKG shows NSR. Brain MRI reveals encephalomalacia of the L frontal lobe. The patient stated he was 'repeatedly falling' at home and had an unwitnessed fall while at [facility]. PT/OT worked with the patient and had no recommendations for therapy. The stated the patient was capable to safely ambulate. An MRI of his lumbar spine was done to look of pathological reason for self-reported ataxia. MRI lumbar spine reveals DJD of L3-L4, no other abnormalities. The patient's symptoms were likely the result of his daily ETOH consumption and his abrupt cessation. The patient was counseled on the dangers of ETOH abuse, as well as ETOH withdrawal, delirium tremors and ETOH w/d seizures. The patient stated understanding and said he 'was done with alcohol.' Whenever the topic of discharge was brought up, the patient stated he was 'co ncerned about his safety' because he states he was 'constantly falling.' Again, his workup was relatively normal. Only findings were related to chronic disease processes. The patient is homeless. His reluctance to go home was likely related to his social situation. The patient stated he could stay with an ex girlfriend if he were to be discharged. With the assistance of case management and the [facility] outside machinist supervisor, the patient was discharged and sent home with via (free) taxi. Physical Exam Vital Signs: Temp Pulse Resp BP Pulse Ox 98.6 F 71 16 137/97 H 100 07/16/18 15:23 07/16/18 15:23 07/16/18 15:23 07/16/18 15:23 07/16/18 15:23 Results Laboratory Results: 07/14/18 06:23 07/14/18 04:22 07/07/18 07/07/18 07/07/18 10:10 10:10 14:40 Creatine Kinase 72 CK-MB (CK-2) 0.75 Troponin I < 0.012 0.013 Impressions: Head MRI 07/07/18 00:00 IMPRESSION: Redemonstrated encephalomalacia of the left frontal pole and left temporal pole. No acute MR abnormality of the brain. No abnormal intracranial contrast enhancement. EVIDENCE OF ACUTE STROKE: NO. Chest X-Ray 07/07/18 10:26 IMPRESSION: NO ACUTE RADIOGRAPHIC FINDING IN THE CHEST. Head CT 07/07/18 10:27 IMPRESSION: Chronic ischemic changes. EVIDENCE OF ACUTE STROKE: NO. Chest/Abdomen CTA 07/07/18 14:06 IMPRESSION: NORMAL CTA OF THE CHEST. NO PULMONARY EMBOLI. Lumbar Spine MRI 07/10/18 00:00 IMPRESSION: 1. MALALIGNMENT WITH LATERAL SLIPPAGE OF THE L3 VERTEBRA ON L4. 2. MARKED DEGENERATIVE DISC DISEASE AT L3-L4. MILD DISC BULGE AND MILD TO MODERATE FACET ARTHROPATHY, WORSE ON THE LEFT, RESULTING IN MILD SPINAL STENOSIS AND MODERATE TO SEVERE LEFT LATERAL RECESS STENOSIS. 3. MILDER DEGENERATIVE CHANGES ELSEWHERE DESCRIBED WITH NO OTHER AREAS OF STENOSIS OR IMPINGEMENT. Ankle X-Ray 07/14/18 04:42 IMPRESSION: No evidence of acute osseous injury involving the right ankle. Foot X-Ray 07/14/18 04:42 IMPRESSION: 1. No evidence of acute osseous injury involving the right foot. 2. Moderate arthritic changes involving the first metatarsal phalangeal joint as described above. Status: Imported from PACS Qualifiers - * PATIENT BEING DISCHARGED WITH ANY OF THE FOLLOWING DIAGNOSIS: No
== END 2018-07-16 15:56 | disposition home or self-care (01) | DRG 897 ==
LOC: ER 10:04 → EH 16:43 → OBSVTOIN 17:16 → 4S 21:56
PROVIDERS: ADMIT Internal Medicine; ATTEND Internal Medicine
DX: F10.231 Alcohol dependence with withdrawal delirium (principal); F19.10 Other psychoactive substance abuse, uncomplicated; E87.8 Other disorders of electrolyte and fluid balance, not elsewhere classified; R19.7 Diarrhea, unspecified; M51.9 Unspecified thoracic, thoracolumbar and lumbosacral intervertebral disc disorder; F17.200 Nicotine dependence, unspecified, uncomplicated
CPT/HCPCS: 36415; 70450; 70553; 71046; 71275; 72158; 80048; 80053; 80307; 81001; 82550; 82553; 82607; 82728; 82746; 83036; 83540; 83550; 83735; 84100; 84439; 84443; 84484; 85025; 85027; 85045; 85610; 93005; 93010; 96360; 99285; A9576; J2060; J3411; J3475; J3480; J3490; J7030